=== PATIENT | female | born 1965 | race Two or more races ===

== ENCOUNTER → 2020-10-07 | Day surgery (SDC) | payer OTHER | END | disposition home or self-care (01) | LOC: ADM 09-30 10:00 → CIR.AMB 07:03 | PROVIDERS: ATTEND Colon & Rectal Surgery | DX: K64.4 Residual hemorrhoidal skin tags (principal); K64.8 Other hemorrhoids; Z20.822 Contact with and (suspected) exposure to COVID-19 ==